=== PATIENT | female | born 1940 | race Caucasian/White ===

== ENCOUNTER 2024-07-08 09:50 | Day surgery (SDC) | payer MEDICARE, OTHER, SELFPAY ==
[2024-07-08] VITALS (9 sets, daily range): BP systolic 107–164; BP diastolic 61–86
[2024-07-08 11:04] LABS: Glucose - Point of Care 94 mg/dl (70-99)
--- NOTE | 2024-07-08 14:44 | ITS.CL.PACE ---
[employer] - Pacemaker Implant
Pacemaker Implant
Procedure Report:
Date of Procedure: July 08, 2024
Patient : 1940
Procedures: Addition of left ventricular pacing lead, upgrade to biventricular pacemaker generator and removal of dual-chamber pacemaker generator
Indication: 1) Class III CHF, LVEF , 2) paced QRS 170 ms and class III heart failure
Implants:
Pulse Generator: Medtronic; Model# W4 TR 01; Serial#�[employer] [id number] implanted today
Atrial Lead: Lead information unavailable was placed in [facility] originally in 2001
Right Ventricular Lead: Lead information unavailable was placed in [facility] originally in 2001
Left Ventricular Lead: Medtronic; Model# [id number]; Serial# [id number] implanted today
Explant:
Medtronic dual-chamber pacemaker product number W1 DR 01 serial number [id number] implanted 2018
Technique: The patient was prepped and draped in the usual fashion. Local anesthetic was applied to the left prepectoral subcutaneous tissue. A 4 inch incision was made. 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
the left. The left axillary vein was accessed with a needle advancing through the occlusion in-plane and the needle was advanced continually until blood return with a Terumo wire placed in the vessel past the occlusion which traveled into the
SVC/RA and into the right atrium and down into the IVC. There was also a central occlusion at the SVC/RA junction which was delineated with venography and was extremely challenging to cross. Starting with a long 7 Slovenian dilator over a Terumo
sheath eventually we could pass the 7 Slovenian dilator into the right atrium. Once this was accomplished a stiffer table wire was exchanged for the Terumo and serial dilation with the dilator of the coronary sinus sheath and then the dilator coronary
sinus sheath system was advanced over the table wire into the right atrium.
Utilizing a nonsteerable Daig catheter the coronary sinus was accessed and CS venogram demonstrated a high lateral branch with an acute takeoff. This was the only vessel that was present and usable.
The prior subpectoral pocket was accessed and the chronic device was removed. The patient had adequate soft tissue in the subcutaneous region above the left pectoral and the final device was moved into the subcutaneous pocket. Hemostasis was
excellent. The leads were introduced with hemostatic peel away introducer sheaths.The coronary sinus was accessed with the aid of the Attain system. The left ventricular lead was placed in the mid lateral position. 10 volt pacing did not capture the
diaphragm. The leads were secured to the pectoralis muscle and fascia. The leads were appropriately attached to the device. The pocket was irrigated with antibiotic solution. The device and leads were placed in the pocket and the device was secured
to pectoralis muscle and facia. The incision was closed with absorbable sutures. The estimated blood loss was minimal. There were no complications. Device based testing was performed as described below. IV contrast total: 30 cc.
System Analysis:
RA lead: P: 1.9 mV; Threshold: 0.4 V @ 0.5 ms; Impedance: 740 ohms.
RV lead: R: paced mV; Threshold: 1.0 V @ 0.5 ms; Impedance: 740 ohms.
LV lead: R: 20 mV which was the sensed R wave off of the RV lead; Threshold: 3.75 V @ 0.5 ms; Impedance: 950 ohms.
Final Programming: Tachy: VT/VF:188; Karan: DDDR 60-120.
Conclusion: Uncomplicated Biventricular pacemaker upgrade
Recommendation: Routine post device care
cc: Dr. Haja Rubio
--- NOTE | 2024-07-08 16:15 | CM ---
Chart reviewed. Patient is Prydein[place] Speaking, I spoke to patient's daughter Enedina. Patient lives alone in a apartment, 3rd floor, ambulates with a RW and has a Home Health Aide with [employer] 8-10 hours a day. Patient will be staying with her
daughter when she is medically stable for discharge. Plan is for the patient to go home with her daughter and [employer]. CM to follow
[2024-07-08] MEDS: TYLENOL 650 MG PO ×2 (16:29→21:45)
[2024-07-08] MEDS: ANCEF 5 IV (18:01)
--- NOTE | 2024-07-08 19:19 | PTCARENOTE ---
Pt received post upgrade to BIV pacemaker. Dressing in left anterior chest dry and intact, no sign of bleeding or hematoma, pt given tylenol for discomfort. Pt speaks only moldovan, translation by a relative. Pt assisted to bathroom, unsteady gait,
(pt has a walker at home but never uses it). Pt at high risk to fall communicated to her via her family member, will place on fall precautions and monitor her closely. Telemetry shows vent. paced rhythm.
[2024-07-08] MEDS: COREG 3.125 MG PO (20:05)
--- NOTE | 2024-07-08 20:48 | PTCARENOTE ---
Patient received at change of shift resting in the bed eating dinner. [email or web address] language service utilized as patient is primarily Cymraes speaking. PPM site left anterior chest wall aquacell in place, C/D/I. Radial pulse palpable. Left arm immobilizer
in place, patient initially had her arm out of the immobilizer but this was corrected and teaching regarding precautions following PPM implantation reviewed. Vpaced on telemetry. Oxygen saturation on 2L NC 98%. Postop CXR completed. Patient states
she is in a lot of pain but presently declines PRN pain medication at this time. Per daughter the patient can be forgetful at night, bed alarm in place. Plan of care discussed. Call anders within reach.
[2024-07-08] MEDS: NON-FORMULARY ITEM 75 MG PO (21:45)
[2024-07-09] MEDS: ANCEF 5 IV (02:39)
[2024-07-09 02:57] VITALS: BP 143/73
[2024-07-09] MEDS: SYNTHROID 75 MCG PO (04:41)
[2024-07-09 04:53] LABS: Hematocrit 25.8 % (37.0-47.0); Hemoglobin 8.3 g/dL (12.0-16.0); Mean Corp Hgb Conc. 32.2 g/dL (33.0-37.0); Mean Corpuscular Hgb 24.7 pg (27.0-31.0); Mean Corpuscular Volume 76.8 fL (81.0-99.0); Mean Platelet Volume 9.2 fL (7.4-10.4); Platelet Count 190 10^3/uL (130-400); Red Blood Cell Count 3.36 10^6/uL (4.20-5.40); Red Cell Dist. Width 19.9 % (11.5-14.5); White Blood Cell Count 5.3 10^3/uL (4.8-10.8)
[2024-07-09 05:18] LABS: Blood Urea Nitrogen 19 mg/dl (7-17); Calcium 9.3 mg/dl (8.4-10.2); Carbon Dioxide 21 mmol/L (22-30); Chloride 111 mmol/L (98-107); Estimated Creatinine Clearance 42 ml/min; Glucose 107 mg/dl (70-99); Magnesium 1.4 mg/dl (1.6-2.3); Potassium 4.3 mmol/L (3.5-5.1); Sodium 137 mmol/L (135-145); eGFR > 60.00
[2024-07-09 07:14] VITALS: BP 138/78
[2024-07-09] MEDS: MAGNESIUM SULFATE 100 IV (07:49)
[2024-07-09] MEDS: NON-FORMULARY ITEM 75 MG PO (08:14)
[2024-07-09] MEDS: COREG 3.125 MG PO (08:15)
[2024-07-09] MEDS: LASIX 20 MG PO (08:15)
[2024-07-09] MEDS: TYLENOL 650 MG PO ×2 (08:16→11:21)
[2024-07-09] MEDS: BENICAR 5 MG PO (08:17)
--- NOTE | 2024-07-09 09:16 | W.PN.CARDCBS ---
Addendum entered and electronically signed by Phoenix Mckay MD 07/09/24 10:24:
Patient seen and examined
Status post BiV pacemaker upgrade yesterday
Hemoglobin noted
Asymptomatic and normotensive
Tolerating initiation of Coreg
She is in sinus rhythm this morning with appropriate AV pacing
Exam:
Site clean dry and intact
No hematoma
Chest x-ray reviewed without pneumothorax or hemothorax
Leads in stable position
Abdomen soft nontender positive bowel sounds
Alert and x 3
Impression:
NICMP
Chronic HFrEF 20-25% by Echo 06/08/24
post BiV PPM upgrade 07/08/24
SSS post PPM 2000 in [place]
PAF on chronic OAC
HTN
metastatic Melanoma of leg on chemo/immunotherapy follows at [facility]
Acute on Chronic anemia
h/o SBO with surgery 03/15
Hypothyroidism
Plan:
post BiV PPM upgrade
site stable
tele Vpaced
CXR no PTX
acute on chronic anemia -Hbg 8.3 from 10.1 preop, don't know her baseline, will recheck in 1 week, denies any bleeding. There is no evidence of active bleeding or bleeding related to procedure
Hold Eliquis, resume on Saturday evening as she is in sinus rhythm today
Activity restrictions reviewed
incision check in 1 week at [facility]
continue cardiac care with Dr. Rubio
Home today
Original Note:
Today's Communication / Plan
-
post BiV PPM upgrade
recheck cbc in 1 week with anemia
resume Eliquis Sat evening
stable for d/c home
Impression / Plan
-
PCP: Niko Herrera MD
CDY: Mickey Rubio MD
Impression:
NICMP
Chronic HFrEF 20-25% by Echo 06/08/24
post BiV PPM upgrade 07/08/24
SSS post PPM 2000 in [place]
PAF on chronic OAC
HTN
metastatic Melanoma of leg on chemo/immunotherapy follows at [facility]
Acute on Chronic anemia
h/o SBO with surgery 03/15
Hypothyroidism
Plan:
post BiV PPM upgrade
site stable
tele Vpaced
CXR no PTX
acute on chronic anemia -Hbg 8.3 from 10.1 preop, don't know her baseline, will recheck in 1 week, denies any bleeding
Hold Eliquis, resume on Saturday evening
Activity restrictions reviewed
incision check in 1 week at [facility]
continue cardiac care with Dr. Rubio
Home today
Progress Note - Draughtsman
Subjective
Date of Service: July 09, 2024
mild pain at incision site, no cp, sob
Objective
Labs:
07/09/24 04:37
07/09/24 04:37
Labs
Hgb 8.3 g/dL (12.0-16.0) L 07/09/24 04:37
Hct 25.8 % (37.0-47.0) L 07/09/24 04:37
Plt Count 190 10^3/uL (130-400) 07/09/24 04:37
Sodium 137 mmol/L (135-145) 07/09/24 04:37
Potassium 4.3 mmol/L (3.5-5.1) 07/09/24 04:37
BUN 19 mg/dl (7-17) H 07/09/24 04:37
Creatinine 0.7 mg/dL (0.6-1.0) 07/09/24 04:37
Glucose 107 mg/dl (70-99) H 07/09/24 04:37
Vital Signs and I&O:
Vital Signs
Temp Pulse Resp BP Pulse Ox
98.4 F 60 20 138/78 95
07/09/24 07:12 07/09/24 08:15 07/09/24 07:12 07/09/24 08:15 07/09/24 08:10
Vital Signs
Temp Pulse Resp BP Pulse Ox
98.4 F 60 20 138/78 95
07/09/24 07:12 07/09/24 08:15 07/09/24 07:12 07/09/24 08:15 07/09/24 08:10
Intake & Output
07/07/24 07/08/24 07/09/24 07/10/24
06:59 06:59 06:59 06:59
Intake Total 180 / 180
Balance 180 / 180
Physical Exam
Physical Exam
NAD, AOx3
S1, S2, RRR
CTAB, non labored, no wheeze
SNTND bsx4
L CW dressing c/d/i no HT
[2024-07-09 10:13] VITALS: BP 122/66
--- NOTE | 2024-07-09 12:01 | W.DS.TRANS ---
DC Summary - [employer] Dem[employer]
-
Discharge Instructions:
Sleep Apnea Risk Intermediate
Discharge Diagnosis/Procedures BiV Pacemaker upgrade and generator change
Diet Low Cholesterol,2 Gram Sodium
Driving Restrictions No driving for 1 week
Bathing Restrictions OK to Shower
Blood Work Check CBC in 1 week
Specialty Instructions Weigh Daily
Instructions:
Stand-Alone Forms: DC Inst - Implanted Device
Changes to Home Medications: Yes
Discharge Medications:
DC Medications w/original date entered in [employer]
apixaban 2.5 mg tablet (Eliquis) 2.5 mg PO BID 07/08/24
dabrafenib 75 mg capsule (Tafinlar) 75 mg PO Q12H 07/08/24
furosemide 20 mg tablet 20 mg PO DAILY 07/08/24
levothyroxine 75 mcg tablet 75 mcg PO TUTHSA 07/08/24
olmesartan 5 mg tablet 5 mg PO DAILY 07/08/24
trametinib 2 mg tablet (Mekinist) 2 mg PO BID 07/08/24
carvedilol 3.125 mg tablet 3.125 mg PO BID #60 tabs 07/09/24
Home Medication Changes
new to carvedilol
Pending Results: No
--- NOTE | 2024-07-09 12:10 | PTCARENOTE ---
Pt seen by and Farnaz Taylor NP. Pt OOB in room, c/o incisional discomfort, some relief with tylenol. Telemetry and IV device removed. Discharge instructions reviewed with pt's daughter regarding activity restrictions, pain management, wound
care, medications, reporting cares and concerns and follow up appt's. very good understanding verbalized. Pt escorted out via wheelchair and discharged to home.
== END 2024-07-09 12:00 | disposition home or self-care (01) ==
LOC: CATH 09:50
PROVIDERS: Nurse Practitioner Adult Health; ATTENDING PHYSICIAN Internal Medicine Cardiovascular Disease; FAMILY PHYSICIAN Internal Medicine; OTHER PHYSICIAN Internal Medicine Cardiovascular Disease
DX: Z45.010 Encounter for checking and testing of cardiac pacemaker pulse generator [battery] (principal); Z88.5 Allergy status to narcotic agent; Z79.899 Other long term (current) drug therapy; Z79.890 Hormone replacement therapy; I42.8 Other cardiomyopathies; I11.0 Hypertensive heart disease with heart failure; I50.22 Chronic systolic (congestive) heart failure; I49.5 Sick sinus syndrome; I48.0 Paroxysmal atrial fibrillation; C79.9 Secondary malignant neoplasm of unspecified site; C43.70 Malignant melanoma of unspecified lower limb, including hip; D64.9 Anemia, unspecified; E03.9 Hypothyroidism, unspecified; Z92.21 Personal history of antineoplastic chemotherapy; Z79.01 Long term (current) use of anticoagulants
CPT/HCPCS: 33229; 33225; 71045; 80048; 82962; 83735; 85027; 93005; C1730; C1769; C1887; C1892; C1900; C2621; Q9967